=== PATIENT | female | born 1955 | race Caucasian/White ===

== ENCOUNTER 2017-04-20 09:43 | Outpatient (CLI) | END 2017-04-20 09:44 | disposition home or self-care (01) | LOC: RAD 09:43 | PROVIDERS: ATTEND Internal Medicine | DX: Z12.31 Encounter for screening mammogram for malignant neoplasm of breast (principal) | CPT/HCPCS: 77067 ==

== ENCOUNTER 2018-02-24 08:03 | Outpatient (CLI) ==
--- NOTE | 2018-02-24 08:53 | US ---
EXAM: Right upper quadrant abdominal ultrasound. History: Gallbladder abnormalities seen on recent CT. Comparison: CT abdomen pelvis 02/18/2018 Technique: Multiple sonographic images through the abdomen were obtained. Color duplex Doppler was used to interrogate vascular flow. Findings: The pancreas demonstrates no gross abnormality. No abdominal ascites. The liver is not e nlarged. There is antegrade flow within the main portal vein. 1.6 cm anechoic cyst within the right hepatic lobe. No suspicious liver lesions. Limited visualization of the right kidney demonstrates no evidence for hydronephrosis. No shadowing gallstones. There is reverberation artifact within the gallbladder. No gallbladder wall thickening. Common bile duct measures 0.4 cm in caliber. Impression: A small simple hepatic cyst. Examination is otherwise unremarkable.
--- NOTE | 2018-02-24 16:36 | MRI ---
EXAM: MRI abdomen without and with contrast/MRCP HISTORY: Dilated common bile duct, gallbladder adenomyomatosis TECHNIQUE: Multiplanar, multisequence without and following the administration of intravenous Omnisc an, 10 mL using a pancreatic protocol. An MRCP is acquired with 3-D volume rendered images of the bi liary tree. COMPARISON: CT abdomen from 02/18/2018 and abdominal sonogram from 02/24/2018 FINDINGS: The heart size is normal. No pericardial or pleural effusions are detected. There is no evidence of hepatic steatosis. A simple cyst in hepatic segment II is 8.8 mm. A simple cyst in hepatic segment 4a is 13.7 mm. Two additional tiny simple cysts are suggested in the left he patic lobe measuring less than 2 mm. A tiny simple cyst in the right posterior hepatic lobe is 3.1 m m. No suspicious hepatic lesions are evident. The portal and hepatic veins are patent. The gallbladder is free intraluminal filling defects. There is suggestion of minimal adenomyomatosis of the gallbladder fundus with increased T2 signal and focal thickening. The common bile duct is di lated up to 10.3 mm and slightly tapers towards the ampulla. No intrahepatic biliary dilatation. Th e pancreatic duct has normal caliber without divisum or side branch duct dilatation. The pancreas rowan s normal bright T1 signal and normal enhancement. No duodenal diverticula are appreciated. The adrenal glands have normal signal and morphology. The spleen has normal size and signal intensit y. A simple cyst is noted at the interpolar to inferior polar region of the left kidney. The kidneys ar e otherwise normal. Ureters have normal caliber. The intestines have normal caliber without evidence of obstruction or acute inflammation. The bladder is grossly normal. The uterus is surgically absent and there are no adnexal masses. Diverticula ar ise from sigmoid colon without MR evidence of diverticulitis. The abdominal aorta has normal caliber and flow signal. No lymphadenopathy or ascites appreciated. The bone marrow signal intensity is normal. IMPRESSION: 1. Mild extrahepatic biliary dilatation with common bile duct measuring 10.3 mm. No choledocholithi asis or masses. 2. Adenomyomatosis of the gallbladder fundus. 3. Simple acquired hepatic cysts and left renal cyst. 4. Colonic diverticulosis without MR evidence of diverticulitis.
== END 2018-02-24 08:04 | disposition home or self-care (01) ==
LOC: RAD 08:03
PROVIDERS: ATTEND Internal Medicine
DX: K57.30 Diverticulosis of large intestine without perforation or abscess without bleeding (principal); K82.8 Other specified diseases of gallbladder